=== PATIENT | female | born 1990 | race Caucasian/White ===

== ENCOUNTER 2023-09-19 12:17 | Day surgery (SDC) | payer BC ==
[2023-09-19 13:15] VITALS: BMI 39.3
[2023-09-19 13:47] LABS: Creatinine, Urine 147.97 mg/dL (47-110)
[2023-09-19 13:56] LABS: #Basophils 0.04 10x3/uL (0.0-0.2); #Eosinphils 0.07 10x3/uL (0.0-0.5); #Monocytes 0.45 10x3/uL (0.0-1.1); #Neutrophils 5.25 10x3/uL (1.5-8.4); %Basophils 0.5 % (0.0-2.0); %Eosinophils 0.9 % (0.0-6.0); %Lymphocytes 28.4 % (18.0-47.0); %Monocytes 5.5 % (0.0-10.0); %Neutrophils 64.2 % (40.0-75.0); Hematocrit 32.1 % (34.9-44.5); Hemoglobin 11.1 g/dL (12.0-15.5); Mean Corpuscular HGB CONC 34.6 g/dL (32.0-36.0); Mean Corpuscular Hemoglobin 30.1 pg (27.0-33.0); Mean Platelet Volume 12.8 fL (7.4-10.4); Platelet Count 202 10x3/uL (150-450); RBC Distribution Width 12.8 % (11.5-14.5); Red Blood Cell (RBC) Count 3.69 10x6/uL (3.90-5.03); White Blood Cell (WBC) Count 8.2 10x3/uL (3.5-10.5)
[2023-09-19 14:09] LABS: ALT (SGPT) 8 U/L (8-55); AST (SGOT) 13 U/L (5-34); Albumin 2.8 g/dL (3.5-5.0); Alkaline Phosphatase 82 U/L (40-110); Anion Gap 12 mmol/L (10-20); BUN (Urea Nitrogen) 12 mg/dL (7.0-18.7); Bilirubin, Total 0.3 mg/dL (0.2-1.2); Calc. Creatinine Clearance 208 mL/min (70-130); Calcium 10.4 mg/dL (7.8-10.44); Carbon Dioxide 21 mmol/L (22-29); Chloride 108 mmol/L (98-107); Estimated GFR 121; Globulin 3.4 g/dL (2.4-3.5); Glucose 69 mg/dL (70-105); Potassium 3.7 mmol/L (3.5-5.1); Protein, Total 6.2 g/dL (6.0-8.3); Sodium 137 mmol/L (136-145)
== END 2023-09-19 14:54 | disposition home health service (06) ==
LOC: CSHLD/OP 12:17
PROVIDERS: ATTEND Obstetrics & Gynecology
DX: O99.891 Other specified diseases and conditions complicating pregnancy (principal); R03.0 Elevated blood-pressure reading, without diagnosis of hypertension; R51.9 Headache, unspecified; O24.419 Gestational diabetes mellitus in pregnancy, unspecified control; Z79.4 Long term (current) use of insulin; Z79.84 Long term (current) use of oral hypoglycemic drugs; Z90.49 Acquired absence of other specified parts of digestive tract; Z79.82 Long term (current) use of aspirin; Z79.899 Other long term (current) drug therapy; Z3A.34 34 weeks gestation of pregnancy
CPT/HCPCS: 80053; 82570; 84156; 85025; 99283

== ENCOUNTER 2023-09-30 03:16 | Inpatient (IN) | payer BC ==
[2023-09-30] MEDS ORDERED: hydrALAZINE 20 MG/ML VIAL SLOW IVP PRN ×2 (04:09→04:28)
[2023-09-30] MEDS ORDERED: Acetaminophen 500 MG TAB PO SCH (04:15)
[2023-09-30] MEDS ORDERED: Tranexamic Acid 1,000 MG/10 ML VIAL IVP PRN (04:28)
[2023-09-30] MEDS ORDERED: fentaNYL 50 mcg/mL 1 mL Vial SLOW IVP PRN (04:28)
[2023-09-30] MEDS ORDERED: Misoprostol 200 MCG TAB PR PRN (04:28)
[2023-09-30] MEDS ORDERED: Acetaminophen 500 MG TAB PO PRN (04:28)
[2023-09-30] MEDS ORDERED: Carboprost 250 MCG/ML AMP IM PRN (04:28)
[2023-09-30] MEDS ORDERED: Ondansetron PF 4 MG/2 ML Vial IVP PRN (04:28)
[2023-09-30] MEDS ORDERED: Promethazine HCl 25 MG/ML VIAL IM PRN (04:28)
[2023-09-30] MEDS ORDERED: Diphenoxylate HCl/Atropine Tablet PO PRN ×2 (04:28)
[2023-09-30] MEDS ORDERED: Oxytocin 30 units/NS 500 ML 500 ML IV SCH (04:30)
[2023-09-30 04:36] LABS: Creatinine, Urine 44.54 mg/dL (47-110)
[2023-09-30 04:54] VITALS: BMI 40.2
[2023-09-30 05:46] LABS: #Basophils 0.04 10x3/uL (0.0-0.2); #Eosinphils 0.09 10x3/uL (0.0-0.5); #Neutrophils 5.02 10x3/uL (1.5-8.4); %Basophils 0.5 % (0.0-2.0); %Eosinophils 1.1 % (0.0-6.0); %Lymphocytes 32.6 % (18.0-47.0); %Monocytes 5.9 % (0.0-10.0); %Neutrophils 59.4 % (40.0-75.0); Hematocrit 32.2 % (34.9-44.5); Hemoglobin 11.2 g/dL (12.0-15.5); Mean Corpuscular HGB CONC 34.8 g/dL (32.0-36.0); Mean Corpuscular Hemoglobin 30.4 pg (27.0-33.0); Mean Corpuscular Volume 87.5 fL (81.6-98.3); Mean Platelet Volume 13.1 fL (7.4-10.4); Platelet Count 168 10x3/uL (150-450); RBC Distribution Width 13.3 % (11.5-14.5); Red Blood Cell (RBC) Count 3.68 10x6/uL (3.90-5.03); White Blood Cell (WBC) Count 8.4 10x3/uL (3.5-10.5)
[2023-09-30 05:56] LABS: ALT (SGPT) 9 U/L (8-55); AST (SGOT) 14 U/L (5-34); Albumin 2.8 g/dL (3.5-5.0); Alkaline Phosphatase 105 U/L (40-110); Anion Gap 15 mmol/L (10-20); BUN (Urea Nitrogen) 10 mg/dL (7.0-18.7); Bilirubin, Total 0.2 mg/dL (0.2-1.2); Calc. Creatinine Clearance 233 mL/min (70-130); Calcium 9.2 mg/dL (7.8-10.44); Carbon Dioxide 16 mmol/L (22-29); Chloride 107 mmol/L (98-107); Estimated GFR 124; Globulin 3.3 g/dL (2.4-3.5); Glucose 87 mg/dL (70-105); Potassium 3.7 mmol/L (3.5-5.1); Protein, Total 6.1 g/dL (6.0-8.3); Sodium 134 mmol/L (136-145)
[2023-09-30 06:15] LABS: HBsAg Index 0.18 S/CO (0-0.99); Hep B Surf Ag - L&D Non-Reactive S/CO (NonReactive); Syphilis Antibody Nonreactive (Nonreactive); Syphilis Antibody Index 0.25 S/CO (<1.00 Non-Reactive)
[2023-09-30] MEDS ORDERED: Glucagon 1 MG/ML KIT IM PRN ×2 (07:02→07:36)
[2023-09-30] MEDS ORDERED: Dextrose 50% Abboject 50 ML SYRINGE SLOW IVP PRN ×2 (07:02→07:36)
[2023-09-30] MEDS ORDERED: Dextrose 5% in Water 1,000 ML IV PRN ×2 (07:02→07:36)
[2023-09-30] MEDS ORDERED: Insulin Lispro 100 UNIT/ML 10 ML VIAL SC PRN ×2 (07:07→07:40)
[2023-09-30] MEDS: metFORMIN 500 MG TAB PO SCH (08:30)
[2023-09-30] MEDS: Insulin NPH Human Isophane 100 UNITS/ML (10 ML VIAL) SC SCH (12:00)
== END 2023-09-30 16:35 | disposition home or self-care (01) | DRG 832 ==
LOC: CSHLD/OP 03:16 → CSHLD 05:50
PROVIDERS: ADMIT Obstetrics & Gynecology; ATTEND Obstetrics & Gynecology
DX: O16.3 Unspecified maternal hypertension, third trimester (principal); O24.913 Unspecified diabetes mellitus in pregnancy, third trimester; Z3A.36 36 weeks gestation of pregnancy; Z79.82 Long term (current) use of aspirin; Z79.4 Long term (current) use of insulin; Z90.49 Acquired absence of other specified parts of digestive tract
CPT/HCPCS: 36415; 80053; 82570; 84156; 85025; 86780; 86850; 86900; 86901; 87340; 96372; 99285; J1815

== ENCOUNTER 2023-10-03 17:55 | Inpatient (IN) | payer BC ==
[~2023-10-03 17:55] MED LIST: Bupivacaine 0.25% HCL 30 ML VIAL ONE
[2023-10-03 18:14] VITALS: BMI 40.2
[2023-10-03] MEDS ORDERED: Ibuprofen 800 MG TAB PO PRN (18:40)
[2023-10-03] MEDS ORDERED: Oxytocin 30 units/NS 500 ML 500 ML IV SCH (18:40)
[2023-10-03] MEDS ORDERED: HYDROcodone/Acetaminophen 5/325 mg Tablet PO PRN ×2 (18:40)
[2023-10-03] MEDS ORDERED: Lidocaine 1% (PF) 30 ML VIAL SC PRN (18:40)
[2023-10-03] MEDS ORDERED: Dextrose 5% in Water 1,000 ML IV PRN (18:40)
[2023-10-03] MEDS ORDERED: fentaNYL 50 mcg/mL 1 mL Vial SLOW IVP PRN (18:40)
[2023-10-03] MEDS ORDERED: Glucagon 1 MG/ML KIT IM PRN (18:40)
[2023-10-03] MEDS ORDERED: Dextrose 50% Abboject 50 ML SYRINGE SLOW IVP PRN (18:40)
[2023-10-03] MEDS ORDERED: Promethazine HCl 25 MG/ML VIAL IM PRN (18:40)
[2023-10-03 18:55] LABS: Hematocrit 32.7 % (34.9-44.5); Hemoglobin 11.5 g/dL (12.0-15.5); Mean Corpuscular HGB CONC 35.2 g/dL (32.0-36.0); Mean Corpuscular Hemoglobin 30.5 pg (27.0-33.0); Mean Corpuscular Volume 86.7 fL (81.6-98.3); Mean Platelet Volume 13.1 fL (7.4-10.4); Platelet Count 185 10x3/uL (150-450); RBC Distribution Width 13.4 % (11.5-14.5); Red Blood Cell (RBC) Count 3.77 10x6/uL (3.90-5.03); White Blood Cell (WBC) Count 7.9 10x3/uL (3.5-10.5)
[2023-10-03 18:58] LABS: ALT (SGPT) 7 U/L (8-55); AST (SGOT) 15 U/L (5-34); Alkaline Phosphatase 116 U/L (40-110); Anion Gap 13 mmol/L (10-20); BUN (Urea Nitrogen) 11 mg/dL (7.0-18.7); Bilirubin, Total 0.2 mg/dL (0.2-1.2); Calc. Creatinine Clearance 203 mL/min (70-130); Calcium 9.5 mg/dL (7.8-10.44); Carbon Dioxide 19 mmol/L (22-29); Chloride 109 mmol/L (98-107); Estimated GFR 119; Globulin 3.2 g/dL (2.4-3.5); Glucose 137 mg/dL (70-105); Potassium 4.3 mmol/L (3.5-5.1); Protein, Total 6.2 g/dL (6.0-8.3); Sodium 137 mmol/L (136-145)
[2023-10-03 19:16] LABS: HBsAg Index 0.18 S/CO (0-0.99); Hep B Surf Ag - L&D Non-Reactive S/CO (NonReactive)
[2023-10-03 19:17] LABS: Syphilis Antibody Nonreactive (Nonreactive); Syphilis Antibody Index 0.26 S/CO (<1.00 Non-Reactive)
[2023-10-04] MEDS: Lactated Ringer's 1,000 ML IV SCH
[2023-10-04] MEDS: Oxytocin 30 units/NS 500 ML 500 ML IV SCH (09:27)
[2023-10-04] MEDS: Penicillin G Potassium 5 MILL.UNITS in Sodium Chloride 0.9% 100 ML IVPB SCH (09:27)
[2023-10-04] MEDS: Insulin Lispro 100 UNIT/ML 10 ML VIAL SC PRN (09:30)
[2023-10-04] MEDS: Penicillin G 2.5 MILL.units 2.5 MILL.UNITS in Premix 1 BAG IVPB SCH (09:33)
[2023-10-04] MEDS: Misoprostol 100 MCG TAB VAG SCH (09:34)
[2023-10-04] MEDS ORDERED: Moisturizing Cream (Eucerin) 113 GM JAR TOP PRN (11:26)
[2023-10-04] MEDS ORDERED: diphenhydrAMINE 50 MG/ML VIAL IVP PRN (11:26)
[2023-10-04] MEDS ORDERED: ePHEDrine Sulfate 50 MG/10 ML VIAL SLOW IVP PRN (11:26)
[2023-10-04] MEDS ORDERED: Naloxone HCl 0.4 mg/ml Vial IVP PRN ×2 (11:26)
[2023-10-04] MEDS ORDERED: Promethazine HCl 25 MG/ML VIAL IM PRN (11:26)
[2023-10-04] MEDS ORDERED: Acetaminophen 325 MG TAB PO PRN (11:26)
[2023-10-04] MEDS ORDERED: Lactated Ringer's 500 ML IV PRN (11:26)
[2023-10-04] MEDS ORDERED: Communication Order-Pharmacy FS SCH (11:30)
[2023-10-04] MEDS: hydrALAZINE 20 MG/ML VIAL SLOW IVP PRN (11:42)
[2023-10-04] MEDS: Magnesium Sulfate 20 gm/500 ml 20 GM/500 ML BAG ONE (11:48)
[2023-10-04] MEDS: fentaNYL/Ropivacaine Epidural 100 ML ONE (11:51)
[2023-10-04] MEDS: fentaNYL 2 mcg/Ropivacaine 0.2% Epidural 100 ML CADD EPIDURAL SCH (11:51)
[2023-10-04] MEDS: Ondansetron PF 4 MG/2 ML Vial IVP PRN ×2 (11:57→17:46)
[2023-10-04] MEDS ORDERED: hydrALAZINE 20 MG/ML VIAL SLOW IVP PRN (17:39)
[2023-10-04] MEDS ORDERED: Benzocaine-Menthol 82.5 ML CAN TOP PRN (17:39)
[2023-10-04] MEDS ORDERED: HYDROcodone/Acetaminophen 5/325 mg Tablet PO PRN ×2 (17:39)
[2023-10-04] MEDS ORDERED: Lanolin Ointment 7 GM TUBE TOP PRN (17:39)
[2023-10-04] MEDS ORDERED: diphenhydrAMINE 25 MG CAP PO PRN (17:39)
[2023-10-04] MEDS ORDERED: Bisacodyl 10 MG SUPP PR PRN (17:39)
[2023-10-04] MEDS ORDERED: Milk Of Magnesia 30 ML UDCUP PO PRN (17:39)
[2023-10-04] MEDS ORDERED: Preparation H Ointment 28 GM TUBE PR PRN (17:39)
[2023-10-04] MEDS ORDERED: Ondansetron PF 4 MG/2 ML Vial IVP PRN (17:39)
[2023-10-04] MEDS ORDERED: Carboprost 250 MCG/ML AMP ONE (19:06)
[2023-10-04] MEDS: NIFEdipine XL 30 MG ER.TAB PO SCH (20:11)
[2023-10-04] MEDS ORDERED: Magnesium Sulfate 20 gm/500 ml 20 GM/500 ML BAG ONE (20:20)
[2023-10-04] MEDS ORDERED: Labetalol HCl 100 MG/20 ML VIAL ONE (20:32)
[2023-10-04] MEDS: Magnesium Sulfate 20 gm/500 ml 20 GM/500 ML BAG IVPB PRN (20:42)
[2023-10-04] MEDS: Labetalol HCl 100 MG/20 ML VIAL SLOW IVP SCH (20:43)
[2023-10-04] MEDS: Ibuprofen 800 MG TAB PO SCH (23:04)
[2023-10-04] MEDS: Misoprostol 200 MCG TAB ONE (23:06)
[2023-10-05] MEDS: Docusate 100 MG CAP PO SCH ×2 (07:50→22:18)
[2023-10-05] MEDS: Prenatal Vitamin 1 TAB PO SCH (07:50)
[2023-10-05] MEDS: NIFEdipine XL 30 MG ER.TAB PO SCH (09:31)
[2023-10-05] MEDS: Ferrous Sulfate 325 MG TAB PO SCH (11:41)
[2023-10-05] MEDS ORDERED: Milk Of Magnesia 30 ML UDCUP PO PRN (19:55)
[2023-10-05] MEDS ORDERED: hydrALAZINE 20 MG/ML VIAL SLOW IVP PRN (19:55)
[2023-10-05] MEDS ORDERED: Bisacodyl 10 MG SUPP PR PRN (19:55)
[2023-10-05] MEDS ORDERED: HYDROcodone/Acetaminophen 5/325 mg Tablet PO PRN (19:55)
[2023-10-05] MEDS ORDERED: Ondansetron PF 4 MG/2 ML Vial IVP PRN (19:55)
[2023-10-05] MEDS ORDERED: Preparation H Ointment 28 GM TUBE PR PRN (19:55)
[2023-10-05] MEDS ORDERED: Insulin Lispro 100 UNIT/ML 10 ML VIAL SC PRN (19:55)
[2023-10-05] MEDS ORDERED: Boostrix 0.5 ML (Tdap) VIAL (>/=7 yrs of age) IM ONE (19:55)
[2023-10-05] MEDS ORDERED: Glucagon 1 MG/ML KIT IM PRN (19:55)
[2023-10-05] MEDS ORDERED: Dextrose 5% in Water 1,000 ML IV PRN (19:55)
[2023-10-05] MEDS ORDERED: Dextrose 50% Abboject 50 ML SYRINGE SLOW IVP PRN (19:55)
[2023-10-05] MEDS ORDERED: Ferrous Sulfate 325 MG TAB PO SCH (20:15)
[2023-10-05] MEDS ORDERED: Prenatal Vitamin 1 TAB PO SCH (20:15)
[2023-10-05] MEDS: Ibuprofen 800 MG TAB PO SCH (22:18)
[2023-10-06 07:40] VITALS: BP 133/77; TEMP 98.5
[2023-10-06] MEDS: NIFEdipine XL 30 MG ER.TAB PO SCH (08:20)
[2023-10-06] MEDS: Prenatal Vitamin 1 TAB PO SCH (08:20)
[2023-10-06] MEDS: metFORMIN 500 MG TAB PO SCH (08:20)
[2023-10-06] MEDS: Ferrous Sulfate 325 MG TAB PO SCH (09:27)
[2023-10-06] MEDS: HYDROcodone/Acetaminophen 5/325 mg Tablet PO PRN (09:50)
[2023-10-06] MEDS: Benzocaine-Menthol 82.5 ML CAN TOP PRN (09:50)
== END 2023-10-06 11:35 | disposition home or self-care (01) | DRG 807 ==
LOC: CSHLD 17:55 → CSHPP 10-05 20:23
PROVIDERS: ADMIT Obstetrics & Gynecology; ATTEND Obstetrics & Gynecology
PROC: 10E0XZZ Delivery of Products of Conception, External Approach (ICD-10-PCS; principal; 2023-10-04)
PROC: 0HQ9XZZ Repair Perineum Skin, External Approach (ICD-10-PCS; 2023-10-04)
DX: O13.4 Gestational [pregnancy-induced] hypertension without significant proteinuria, complicating childbirth (principal); Z37.0 Single live birth; E66.9 Obesity, unspecified; O99.214 Obesity complicating childbirth; Z3A.37 37 weeks gestation of pregnancy; O24.12 Pre-existing type 2 diabetes mellitus, in childbirth; O70.0 First degree perineal laceration during delivery; O62.2 Other uterine inertia; Z79.4 Long term (current) use of insulin; O66.0 Obstructed labor due to shoulder dystocia
CPT/HCPCS: 51702; 80053; 85027; 86780; 86850; 86900; 86901; 87340; J0360; J0665; J1815; J2405; J2540; J2590; J3475; J7120